=== PATIENT | male | born 1970 | race Hispanic/Latino ===

== ENCOUNTER → 2017-02-02 | Day surgery (SDC) | payer BC ==
[~2017-02-02] MED LIST: BUPIVACAINE HCL 0.5% 10ML MPF VIAL INJ ONE; CEFAZOLIN SOD 2 GM/D5W 50ML 50 ML IV ONE; DEXAMETHASONE SOD PHOS INJ 4 MG/ML VIAL ONE; KETOROLAC TROMETHAMINE 30 MG/ML VIAL ONE; LIDOCAINE HCL 2% LOCAL INJ 5 ML SDV VIAL INJ ONE; MIDAZOLAM HCL 2 MG/2 ML VIAL ONE; MORPHINE SULFATE INJ 10 MG/ML ONE; ONDANSETRON HCL INJ 2 MG/ML VIAL ONE; PROPOFOL IV EMULSION 10 MG/ML 20 ML VIAL ONE; SEVOFLURANE INHAL SOLN 250 ML PEN BTL ONE
--- NOTE | 2017-02-03 04:33 | Operative Report ---
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 TITLE OF THE OPERATION: Modified James bunionectomy of the left foot. ANESTHESIA: General endotracheal. HEMOSTASIS: Left thigh tourniquet at 350 mmHg. PROCEDURE IN DETAIL: The patient was taken to the operating room in a mildly sedated state and placed upon the operating room table in supine position. Following induction of general anesthetic, the left lower extremity was elevated to 60 degrees to exsanguinate before inflating the pneumatic thigh tourniquet to 350 mmHg to create hemostasis. Left lower extremity was placed upon the operation room table prior to performing the following procedure: Procedure #1. Modified James bunionectomy of the left foot. An approximately 6 cm dorsal linear incision was made across the dorsomedial aspect of the first metatarsophalangeal joint of the left foot. The incision was deepened via sharp and blunt dissection down to the level of the dorsal capsular structure. Care was taken to identify and retract all vital structures encountered. Head of the first metatarsal was delivered into surgical site and remodeled utilizing oscillating saw. Co-joined tendon of the abductor hallucis muscle was identified and tenotomized. A [id number] V osteotomy was placed at the apex distally and base proximally, which allowed for relative shift lateral-márquez of the head of the more proximal segment, which was then impacted and stabilized with 2 cortical bone screws. The area was then further remodeled and irrigated with copious amounts of sterile saline solution. Deep closure was 3-0 Vicryl, subcutaneous closure 4-0 Vicryl and 4-0 nylon. The areas of surgery were blocked with 0.5 Marcaine and Decadron [place]. Human tissue allograft was injected into the area to facilitate healing. The release of the pneumatic thigh tourniquet showed a normal hyperemic flush to all digits of the left foot. Posterior splint was applied, and the patient left the operating room with vital signs stable and in apparent satisfactory condition having tolerated both the anesthetic and procedure very well. Job#: [id number]
== END | disposition home or self-care (01) ==
LOC: OR 06:07
PROVIDERS: ATTEND Podiatrist Foot Surgery
DX: M20.12 Hallux valgus (acquired), left foot (principal); Z01.810 Encounter for preprocedural cardiovascular examination
CPT/HCPCS: 28296; 93005; C1713 ×2; J1100; J1885; J2001; J2250; J2270; J2405; 76000